=== PATIENT | male | born 1975 | race Caucasian/White ===

== ENCOUNTER 2018-01-16 12:23 | Inpatient (IN) | payer OTHER ==
[2018-01-16] MEDS ORDERED: MEROPENEM 1 GM/50ML(PMX) 50 ML IVPB (12:30)
[2018-01-16] MEDS: HYDROmorphONE 2 MG/ML SYG IV (12:42)
[2018-01-16] MEDS: SODIUM CHLORIDE 0.9% 1L BAG IV* (12:42)
[2018-01-16 12:59] LABS: ADD MAN DIFF? NO
[2018-01-16] MEDS ORDERED: PIPER-TAZO 3.375 GM IV (PMX) 100 ML IVPB (13:00)
[2018-01-16 13:02] LABS: WHITE BLOOD COUNT 3.2 10^3/ul (4.8-10.8)
[2018-01-16 13:02] LABS: BASOPHILS % 0.9 % (0.0-2.0); EOSINOPHILS # 0.5 10^3/ul (0.0-0.5); EOSINOPHILS % 14.5 % (0.0-7.0); HEMOGLOBIN 12.4 g/dl (14.0-18.0); LYMPHOCYTES # 1.3 10^3/ul (0.8-2.9); LYMPHOCYTES % 40.1 % (15.0-51.0); MEAN CORPUSCULAR HEMOGLOBIN 31.9 pg (29.0-33.0); MEAN CORPUSCULAR HGB CONC 33.5 g/dl (32.0-37.0); MEAN CORPUSCULAR VOLUME 95.1 fl (82.0-101.0); MEAN PLATELET VOLUME 11.9 fl (7.4-10.4); MONOCYTE # 0.4 10^3/ul (0.3-0.9); MONOCYTES % 11.4 % (0.0-11.0); NEUTROPHIL # 1.1 10^3/ul (1.6-7.5); NEUTROPHILS % 33.1 % (39.0-77.0); PLATELET COUNT 132 10^3/UL (140-415); RED BLOOD COUNT 3.89 10^6/ul (4.70-6.10); RED CELL DISTRIBUTION WIDTH 12.6 % (11.5-14.5)
[2018-01-16 13:23] LABS: LACTIC ACID 0.9 mmol/L (0.5-2.0)
[2018-01-16 13:32] LABS: INR 0.96; PROTIME 12.9 Sec (11.9-14.9)
[2018-01-16 13:33] LABS: PARTIAL THROMBOPLASTIN TIME 30.3 Sec (25.0-35.0)
[2018-01-16] MEDS: PIPER-TAZO 3.375 GM IV (PMX) 100 ML IVPB (13:36)
[2018-01-16 13:40] LABS: ALANINE AMINOTRANSFERASE 78 IU/L (13-69); ALBUMIN 3.8 g/dl (3.3-4.9); ALBUMIN/GLOBULIN RATIO 1.05; ALKALINE PHOSPHATASE 180 IU/L (42-121); ANION GAP 13 (8-16); ASPARTATE AMINO TRANSFERASE 47 IU/L (15-46); BILIRUBIN,INDIRECT 0.3 mg/dl (0-1.1); BILIRUBIN,TOTAL 0.3 mg/dl (0.2-1.3); BLOOD UREA NITROGEN 7 mg/dl (7-20); CALCIUM 9.3 mg/dl (8.4-10.2); CARBON DIOXIDE 32 mmol/L (21-31); CHLORIDE 99 mmol/L (97-110); CREATININE 0.33 mg/dl (0.61-1.24); GLUCOSE 109 mg/dl (70-220); POTASSIUM 3.8 mmol/L (3.5-5.1); SODIUM 140 mmol/L (135-144); TOTAL PROTEIN 7.4 g/dl (6.1-8.1)
[2018-01-16 13:51] LABS: TROPONIN-I < 0.012 ng/ml (0.000-0.120)
[2018-01-16 13:56] LABS: ADD UMIC YES; UR ASCORBIC ACID NEGATIVE (NEGATIVE); UR BACTERIA FEW /HPF (NONE SEEN); UR BILIRUBIN (Dip) NEGATIVE (NEGATIVE); UR BLOOD (Dip) 2+ mg/dL (NEGATIVE); UR CLARITY CLOUDY (CLEAR); UR COLOR YELLOW (YELLOW); UR GLUCOSE (Dip) NEGATIVE (NEGATIVE); UR KETONES (Dip) NEGATIVE (NEGATIVE); UR LEUKOCYTE ESTERASE (Dip) 3+ Leu/ul (NEGATIVE); UR NITRITE (Dip) NEGATIVE (NEGATIVE); UR RBC 25 /HPF (0-5); UR SPECIFIC GRAVITY (Dip) 1.002 (1.003-1.030); UR TOTAL PROTEIN (Dip) 1+ mg/dl (NEGATIVE); UR UROBILINOGEN (Dip) NEGATIVE (NEGATIVE); UR WBC 121 /HPF (0-5)
[2018-01-16] MEDS ORDERED: ONDANSETRON 4 MG INJ IV ×2 (14:30→15:00)
[2018-01-16] MEDS: AMIKACIN 500 MG in DEXTROSE 5% 100 ML IVPB (14:37)
[2018-01-16] MEDS: SOD CHLORIDE 0.9% 1,000 ML IV (14:37)
[2018-01-16] MEDS ORDERED: NACL 0.9% 3 ML SYG IV (15:00)
[2018-01-16] MEDS ORDERED: MAGNESIUM HYDROXIDE 30ML CUP PO (15:00)
[2018-01-16] MEDS ORDERED: hydrALAzine 20 MG INJ IV (15:00)
[2018-01-16] MEDS ORDERED: DOCUSATE SODIUM 100 MG CAP PO (15:00)
[2018-01-16] MEDS ORDERED: NA PHOSPHATE/BIPHOS 133 ML ENEMA PR (15:00)
[2018-01-16] MEDS ORDERED: AMIKACIN IV PER PHARMACY XX (15:00)
[2018-01-16] MEDS ORDERED: CEFEPIME 2GM/50 ML (PMX) 50 ML IVPB (15:00)
[2018-01-16] MEDS ORDERED: ACETAMINOPHEN 325 MG TAB PO (15:00)
[2018-01-16] MEDS ORDERED: NITROGLYCERIN (SL) 0.4 MG TAB SL (15:00)
[2018-01-16] MEDS ORDERED: HYDROCODONE/APAP (5/325) TAB PO (15:00)
[2018-01-16 16:01] LABS: LACTIC ACID 0.5 mmol/L (0.5-2.0)
[2018-01-16 16:48] LABS: FREE T4 (FREE THYROXINE) 1.01 ng/dl (0.64-1.79)
[2018-01-16] MEDS: SOD CHLORIDE 0.45% 1,000 ML IV (19:46)
[2018-01-16] MEDS ORDERED: PENDING SANTYL ORDER FOR WOUND CARE XX (20:30)
[2018-01-16 20:35] LABS: LACTIC ACID < 0.5 mmol/L (0.5-2.0)
[2018-01-16] MEDS ORDERED: LEVETIRACETAM 1000 MG (PMX) 100 ML IVPB (21:00)
[2018-01-16] MEDS: HEPARIN 5,000 UNIT/0.5 ML VIAL SC (21:00)
[2018-01-16] MEDS: LORAZEPAM 1 MG TAB GTB (22:19)
[2018-01-16] MEDS: traZODone 50 MG TAB GTB (22:20)
[2018-01-16] MEDS: BACLOFEN 10 MG TAB GTB (22:21)
[2018-01-16] MEDS: PHENOBARBITAL 32.4 MG TAB GTB (22:21)
[2018-01-16] MEDS: RISPERIDONE 1 MG TAB GTB (22:22)
[2018-01-16] MEDS: GABAPENTIN (50 MG/ML PO SYG) GTB (22:22)
[2018-01-16] MEDS: RANITIDINE (15 MG/ML) 10ML CUP GTB (22:22)
[2018-01-16] MEDS: ZONISAMIDE 100 MG CAP GTB (22:23)
[2018-01-17] MEDS: KETOROLAC 30 MG INJ IV (01:32)
[2018-01-17] MEDS: morphine LIQ (10 MG/5 ML) CUP GTB (02:05)
[2018-01-17] MEDS: SOD CHLORIDE 0.45% 1,000 ML IV ×2 (04:03→09:57)
[2018-01-17 05:52] LABS: ADD MAN DIFF? NO
[2018-01-17 06:02] LABS: BASOPHIL # 0.1 10^3/ul (0.0-0.1); BASOPHILS % 1.6 % (0.0-2.0); EOSINOPHILS # 0.4 10^3/ul (0.0-0.5); EOSINOPHILS % 14.1 % (0.0-7.0); HEMATOCRIT 34.4 % (42.0-52.0); HEMOGLOBIN 11.4 g/dl (14.0-18.0); LYMPHOCYTES # 0.7 10^3/ul (0.8-2.9); LYMPHOCYTES % 24.2 % (15.0-51.0); MEAN CORPUSCULAR HEMOGLOBIN 31.8 pg (29.0-33.0); MEAN CORPUSCULAR HGB CONC 33.1 g/dl (32.0-37.0); MEAN CORPUSCULAR VOLUME 96.1 fl (82.0-101.0); MEAN PLATELET VOLUME 12.1 fl (7.4-10.4); MONOCYTE # 0.4 10^3/ul (0.3-0.9); MONOCYTES % 14.4 % (0.0-11.0); NEUTROPHIL # 1.4 10^3/ul (1.6-7.5); NEUTROPHILS % 45.4 % (39.0-77.0); PLATELET COUNT 123 10^3/UL (140-415); RED BLOOD COUNT 3.58 10^6/ul (4.70-6.10); RED CELL DISTRIBUTION WIDTH 12.9 % (11.5-14.5)
[2018-01-17 06:02] LABS: WHITE BLOOD COUNT 3.1 10^3/ul (4.8-10.8)
[2018-01-17 06:29] LABS: ANION GAP 11 (8-16); BLOOD UREA NITROGEN 7 mg/dl (7-20); CALCIUM 9.5 mg/dl (8.4-10.2); CARBON DIOXIDE 31 mmol/L (21-31); CHLORIDE 106 mmol/L (97-110); CHOL/HDL RATIO 3.3 RATIO; CREATININE 0.33 mg/dl (0.61-1.24); GLUCOSE 71 mg/dl (70-220); HDL CHOLESTEROL 39 mg/dl (27-67); LDL CHOLESTEROL,CALCULATED 79 mg/dl; MAGNESIUM 1.8 mg/dl (1.7-2.5); PHOSPHORUS 3.5 mg/dl (2.5-4.9); SODIUM 144 mmol/L (135-144); TRIGLYCERIDES 68 mg/dl (0-149)
[2018-01-17 06:29] LABS: CHOLESTEROL 132 mg/dl (100-200)
[2018-01-17 07:10] LABS: HEMOGLOBIN A1C 4.7 % (0-5.9)
[2018-01-17] MEDS: ACETYLCYSTEINE 20% 4 ML VIAL NEB ×3 (07:14→20:15)
[2018-01-17] MEDS: ALBUTEROL/IPRATROPIUM (NEB) 3 ML AMP NEB ×2 (07:14→20:16)
[2018-01-17] MEDS: BACLOFEN 10 MG TAB GTB ×3 (09:24→21:06)
[2018-01-17] MEDS: GABAPENTIN (50 MG/ML PO SYG) GTB ×3 (09:25→21:00)
[2018-01-17] MEDS: RANITIDINE (15 MG/ML) 10ML CUP GTB ×2 (09:25→21:06)
[2018-01-17] MEDS: PHENOBARBITAL 32.4 MG TAB GTB ×2 (09:25→21:07)
[2018-01-17] MEDS: LORAZEPAM 1 MG TAB GTB ×2 (09:25→21:06)
[2018-01-17] MEDS: LORATADINE 10 MG TAB GTB (09:25)
[2018-01-17] MEDS: HEPARIN 5,000 UNIT/0.5 ML VIAL SC ×2 (09:33→21:15)
[2018-01-17] MEDS: AMIKACIN 500 MG in SOD CHLORIDE 0.9% 100 ML IVPB (16:20)
[2018-01-17] MEDS: RISPERIDONE 1 MG TAB GTB (21:06)
[2018-01-17] MEDS: ZONISAMIDE 100 MG CAP GTB (21:06)
[2018-01-17] MEDS: traZODone 50 MG TAB GTB (21:07)
[2018-01-18] MEDS: morphine LIQ (10 MG/5 ML) CUP GTB ×4 (01:41→18:54)
[2018-01-18] MEDS: SOD CHLORIDE 0.45% 1,000 ML IV ×2 (01:41→18:57)
[2018-01-18] MEDS: KETOROLAC 30 MG INJ IV ×3 (05:53→18:23)
[2018-01-18 06:07] LABS: ADD MAN DIFF? NO
[2018-01-18 06:30] LABS: WHITE BLOOD COUNT 4.2 10^3/ul (4.8-10.8)
[2018-01-18 06:30] LABS: BASOPHILS % 0.9 % (0.0-2.0); EOSINOPHILS # 0.4 10^3/ul (0.0-0.5); EOSINOPHILS % 8.3 % (0.0-7.0); HEMATOCRIT 32.9 % (42.0-52.0); HEMOGLOBIN 11.2 g/dl (14.0-18.0); LYMPHOCYTES # 0.9 10^3/ul (0.8-2.9); LYMPHOCYTES % 21.7 % (15.0-51.0); MEAN CORPUSCULAR HEMOGLOBIN 31.9 pg (29.0-33.0); MEAN CORPUSCULAR VOLUME 93.7 fl (82.0-101.0); MEAN PLATELET VOLUME 12.5 fl (7.4-10.4); MONOCYTE # 0.6 10^3/ul (0.3-0.9); NEUTROPHIL # 2.4 10^3/ul (1.6-7.5); NEUTROPHILS % 55.9 % (39.0-77.0); PLATELET COUNT 121 10^3/UL (140-415); RED BLOOD COUNT 3.51 10^6/ul (4.70-6.10); RED CELL DISTRIBUTION WIDTH 12.9 % (11.5-14.5)
[2018-01-18 06:38] LABS: ANION GAP 13 (8-16); BLOOD UREA NITROGEN 10 mg/dl (7-20); CALCIUM 8.6 mg/dl (8.4-10.2); CARBON DIOXIDE 24 mmol/L (21-31); CHLORIDE 109 mmol/L (97-110); CREATININE 0.28 mg/dl (0.61-1.24); GLUCOSE 111 mg/dl (70-220); POTASSIUM 4.4 mmol/L (3.5-5.1); SODIUM 142 mmol/L (135-144)
[2018-01-18] MEDS: ALBUTEROL/IPRATROPIUM (NEB) 3 ML AMP NEB ×2 (08:33→19:41)
[2018-01-18] MEDS: ACETYLCYSTEINE 20% 4 ML VIAL NEB ×2 (08:34→19:41)
[2018-01-18] MEDS: LORAZEPAM 1 MG TAB GTB ×2 (09:17→21:08)
[2018-01-18] MEDS: PHENOBARBITAL 32.4 MG TAB GTB ×2 (09:17→21:10)
[2018-01-18] MEDS: LORATADINE 10 MG TAB GTB (09:17)
[2018-01-18] MEDS: BACLOFEN 10 MG TAB GTB ×3 (09:17→21:09)
[2018-01-18] MEDS: GABAPENTIN (50 MG/ML PO SYG) GTB ×3 (09:18→21:00)
[2018-01-18] MEDS: RANITIDINE (15 MG/ML) 10ML CUP GTB ×2 (09:18→21:07)
[2018-01-18] MEDS: HEPARIN 5,000 UNIT/0.5 ML VIAL SC ×2 (09:23→21:15)
[2018-01-18] MEDS: AMIKACIN 500 MG in SOD CHLORIDE 0.9% 100 ML IVPB (16:18)
[2018-01-18] MEDS: ALBUTEROL/IPRATROPIUM (NEB) 3 ML AMP HHN (16:24)
[2018-01-18] MEDS: RISPERIDONE 1 MG TAB GTB (21:08)
[2018-01-18] MEDS: ZONISAMIDE 100 MG CAP GTB (21:08)
[2018-01-18] MEDS: ZYVOX 600 MG TAB PO (21:09)
[2018-01-18] MEDS: traZODone 50 MG TAB GTB (21:10)
[2018-01-18] MEDS: NYSTATIN 30 GM POWDER BTL TOP (21:11)
[2018-01-19] MEDS: ALBUTEROL/IPRATROPIUM (NEB) 3 ML AMP HHN (02:35)
[2018-01-19] MEDS: KETOROLAC 30 MG INJ IV ×3 (03:05→14:36)
[2018-01-19] MEDS: morphine LIQ (10 MG/5 ML) CUP GTB ×4 (04:25→18:11)
[2018-01-19 05:50] LABS: ADD MAN DIFF? NO
[2018-01-19 05:54] LABS: BASOPHILS % 1.5 % (0.0-2.0); EOSINOPHILS # 0.2 10^3/ul (0.0-0.5); EOSINOPHILS % 8.9 % (0.0-7.0); HEMATOCRIT 29.3 % (42.0-52.0); HEMOGLOBIN 9.7 g/dl (14.0-18.0); LYMPHOCYTES # 0.9 10^3/ul (0.8-2.9); LYMPHOCYTES % 31.6 % (15.0-51.0); MEAN CORPUSCULAR HEMOGLOBIN 31.7 pg (29.0-33.0); MEAN CORPUSCULAR HGB CONC 33.1 g/dl (32.0-37.0); MEAN CORPUSCULAR VOLUME 95.8 fl (82.0-101.0); MEAN PLATELET VOLUME 11.9 fl (7.4-10.4); MONOCYTE # 0.5 10^3/ul (0.3-0.9); MONOCYTES % 16.7 % (0.0-11.0); NEUTROPHIL # 1.1 10^3/ul (1.6-7.5); NEUTROPHILS % 41.3 % (39.0-77.0); PLATELET COUNT 133 10^3/UL (140-415); RED BLOOD COUNT 3.06 10^6/ul (4.70-6.10); RED CELL DISTRIBUTION WIDTH 13.3 % (11.5-14.5)
[2018-01-19 05:54] LABS: WHITE BLOOD COUNT 2.7 10^3/ul (4.8-10.8)
[2018-01-19 06:26] LABS: ANION GAP 10 (8-16); BLOOD UREA NITROGEN 10 mg/dl (7-20); CALCIUM 8.9 mg/dl (8.4-10.2); CARBON DIOXIDE 30 mmol/L (21-31); CHLORIDE 106 mmol/L (97-110); CREATININE 0.35 mg/dl (0.61-1.24); GLUCOSE 98 mg/dl (70-220); POTASSIUM 4.5 mmol/L (3.5-5.1); SODIUM 141 mmol/L (135-144)
[2018-01-19] MEDS: RANITIDINE (15 MG/ML) 10ML CUP GTB ×2 (08:53→20:30)
[2018-01-19] MEDS: BACLOFEN 10 MG TAB GTB ×3 (08:53→20:32)
[2018-01-19] MEDS: ZYVOX 600 MG TAB PO ×2 (08:53→20:32)
[2018-01-19] MEDS: GABAPENTIN (50 MG/ML PO SYG) GTB ×3 (08:53→20:31)
[2018-01-19] MEDS: ACETYLCYSTEINE 20% 4 ML VIAL NEB ×2 (08:56→20:49)
[2018-01-19] MEDS: ALBUTEROL/IPRATROPIUM (NEB) 3 ML AMP NEB ×2 (08:56→20:49)
[2018-01-19] MEDS: LORATADINE 10 MG TAB GTB (09:00)
[2018-01-19] MEDS: LORAZEPAM 1 MG TAB GTB ×2 (09:00→20:32)
[2018-01-19] MEDS: PHENOBARBITAL 32.4 MG TAB GTB ×2 (09:00→20:31)
[2018-01-19] MEDS: NYSTATIN 30 GM POWDER BTL TOP ×2 (09:01→20:33)
[2018-01-19] MEDS: BALSAM PERU/CASTOR OIL 60 GM TUBE TOP (09:01)
[2018-01-19] MEDS: HEPARIN 5,000 UNIT/0.5 ML VIAL SC ×2 (09:26→20:34)
[2018-01-19] MEDS: SOD CHLORIDE 0.45% 1,000 ML IV ×3 (09:27→23:00)
[2018-01-19] MEDS: AMIKACIN 500 MG in SOD CHLORIDE 0.9% 100 ML IVPB (16:21)
[2018-01-19 18:56] LABS: AMIKACIN TROUGH <2.5 mg/L (4.0-8.0)
[2018-01-19] MEDS: traZODone 50 MG TAB GTB (20:31)
[2018-01-19] MEDS: ZONISAMIDE 100 MG CAP GTB (20:31)
[2018-01-19] MEDS: RISPERIDONE 1 MG TAB GTB (20:32)
[2018-01-20] MEDS: AMIKACIN 500 MG in SOD CHLORIDE 0.9% 100 ML IVPB (04:23)
[2018-01-20] MEDS: KETOROLAC 30 MG INJ IV ×3 (04:23→19:38)
[2018-01-20] MEDS: morphine LIQ (10 MG/5 ML) CUP GTB ×3 (05:43→14:16)
[2018-01-20 06:04] LABS: ADD MAN DIFF? NO
[2018-01-20 06:22] LABS: WHITE BLOOD COUNT 4.1 10^3/ul (4.8-10.8)
[2018-01-20 06:22] LABS: EOSINOPHILS # 0.6 10^3/ul (0.0-0.5); HEMOGLOBIN 11.2 g/dl (14.0-18.0); LYMPHOCYTES # 1.3 10^3/ul (0.8-2.9); LYMPHOCYTES % 30.5 % (15.0-51.0); MEAN CORPUSCULAR HEMOGLOBIN 32.3 pg (29.0-33.0); MEAN CORPUSCULAR HGB CONC 32.9 g/dl (32.0-37.0); MEAN PLATELET VOLUME 12.6 fl (7.4-10.4); MONOCYTE # 0.6 10^3/ul (0.3-0.9); MONOCYTES % 13.3 % (0.0-11.0); NEUTROPHIL # 1.7 10^3/ul (1.6-7.5); NEUTROPHILS % 41.2 % (39.0-77.0); POSITIVE DIFF @See below; RED BLOOD COUNT 3.47 10^6/ul (4.70-6.10); RED CELL DISTRIBUTION WIDTH 13.4 % (11.5-14.5)
[2018-01-20 06:36] LABS: PLATELET COUNT 106 10^3/UL (140-415)
[2018-01-20 06:39] LABS: ANION GAP 13 (8-16); BLOOD UREA NITROGEN 12 mg/dl (7-20); CALCIUM 9.2 mg/dl (8.4-10.2); CARBON DIOXIDE 28 mmol/L (21-31); CHLORIDE 106 mmol/L (97-110); CREATININE 0.35 mg/dl (0.61-1.24); GLUCOSE 86 mg/dl (70-220); POTASSIUM 4.9 mmol/L (3.5-5.1); SODIUM 142 mmol/L (135-144)
[2018-01-20] MEDS: ACETYLCYSTEINE 20% 4 ML VIAL NEB ×2 (07:42→19:58)
[2018-01-20] MEDS: ALBUTEROL/IPRATROPIUM (NEB) 3 ML AMP NEB ×2 (07:42→19:48)
[2018-01-20] MEDS: LORAZEPAM 1 MG TAB GTB ×2 (09:35→20:24)
[2018-01-20] MEDS: PHENOBARBITAL 32.4 MG TAB GTB ×2 (09:35→20:23)
[2018-01-20] MEDS: BACLOFEN 10 MG TAB GTB ×3 (09:35→20:24)
[2018-01-20] MEDS: RANITIDINE (15 MG/ML) 10ML CUP GTB ×2 (09:36→20:23)
[2018-01-20] MEDS: ZYVOX 600 MG TAB PO ×2 (09:36→20:24)
[2018-01-20] MEDS: LORATADINE 10 MG TAB GTB (09:36)
[2018-01-20] MEDS: GABAPENTIN (50 MG/ML PO SYG) GTB ×3 (09:36→20:23)
[2018-01-20] MEDS: HEPARIN 5,000 UNIT/0.5 ML VIAL SC ×2 (09:37→20:31)
[2018-01-20] MEDS: BALSAM PERU/CASTOR OIL 60 GM TUBE TOP (09:38)
[2018-01-20] MEDS: NYSTATIN 30 GM POWDER BTL TOP ×2 (09:38→20:25)
[2018-01-20] MEDS: SOD CHLORIDE 0.45% 1,000 ML IV ×2 (11:58→20:25)
[2018-01-20] MEDS: RISPERIDONE 1 MG TAB GTB (20:24)
[2018-01-20] MEDS: ZONISAMIDE 100 MG CAP GTB (20:24)
[2018-01-20] MEDS: traZODone 50 MG TAB GTB (20:24)
[2018-01-21] MEDS: SOD CHLORIDE 0.45% 1,000 ML IV ×2 (00:27→11:58)
[2018-01-21] MEDS: KETOROLAC 30 MG INJ IV ×2 (01:41→07:43)
[2018-01-21] MEDS: morphine LIQ (10 MG/5 ML) CUP GTB ×2 (04:36→08:56)
[2018-01-21 06:04] LABS: ADD MAN DIFF? NO
[2018-01-21] MEDS: BACLOFEN 10 MG TAB GTB ×3 (08:53→20:47)
[2018-01-21] MEDS: LORATADINE 10 MG TAB GTB (08:53)
[2018-01-21] MEDS: ZYVOX 600 MG TAB PO ×2 (08:53→20:49)
[2018-01-21] MEDS: GABAPENTIN (50 MG/ML PO SYG) GTB ×3 (08:54→20:45)
[2018-01-21] MEDS: PHENOBARBITAL 32.4 MG TAB GTB ×2 (08:54→20:43)
[2018-01-21] MEDS: RANITIDINE (15 MG/ML) 10ML CUP GTB ×2 (08:54→20:42)
[2018-01-21] MEDS: LORAZEPAM 1 MG TAB GTB ×2 (08:54→20:44)
[2018-01-21] MEDS: HEPARIN 5,000 UNIT/0.5 ML VIAL SC ×2 (08:57→20:51)
[2018-01-21] MEDS: BALSAM PERU/CASTOR OIL 60 GM TUBE TOP (08:58)
[2018-01-21] MEDS: NYSTATIN 30 GM POWDER BTL TOP ×2 (08:58→20:55)
[2018-01-21 09:20] LABS: WHITE BLOOD COUNT 5.1 10^3/ul (4.8-10.8)
[2018-01-21 09:20] LABS: BASOPHILS % 0.4 % (0.0-2.0); EOSINOPHILS # 0.5 10^3/ul (0.0-0.5); HEMATOCRIT 33.3 % (42.0-52.0); HEMOGLOBIN 10.9 g/dl (14.0-18.0); LYMPHOCYTES # 1.1 10^3/ul (0.8-2.9); LYMPHOCYTES % 21.4 % (15.0-51.0); MEAN CORPUSCULAR HEMOGLOBIN 31.9 pg (29.0-33.0); MEAN CORPUSCULAR HGB CONC 32.7 g/dl (32.0-37.0); MEAN CORPUSCULAR VOLUME 97.4 fl (82.0-101.0); MEAN PLATELET VOLUME 12.1 fl (7.4-10.4); MONOCYTE # 0.7 10^3/ul (0.3-0.9); MONOCYTES % 13.2 % (0.0-11.0); NEUTROPHIL # 2.8 10^3/ul (1.6-7.5); NEUTROPHILS % 55.8 % (39.0-77.0); PLATELET COUNT 137 10^3/UL (140-415); RED BLOOD COUNT 3.42 10^6/ul (4.70-6.10); RED CELL DISTRIBUTION WIDTH 13.3 % (11.5-14.5)
[2018-01-21] MEDS: ACETYLCYSTEINE 20% 4 ML VIAL NEB ×2 (09:29→20:45)
[2018-01-21] MEDS: ALBUTEROL/IPRATROPIUM (NEB) 3 ML AMP NEB ×2 (09:29→20:45)
[2018-01-21 09:39] LABS: ANION GAP 15 (8-16); BLOOD UREA NITROGEN 12 mg/dl (7-20); CARBON DIOXIDE 27 mmol/L (21-31); CHLORIDE 102 mmol/L (97-110); CREATININE 0.32 mg/dl (0.61-1.24); GLUCOSE 106 mg/dl (70-220); POTASSIUM 4.7 mmol/L (3.5-5.1); SODIUM 139 mmol/L (135-144)
[2018-01-21] MEDS: AMIKACIN 500 MG in SOD CHLORIDE 0.9% 100 ML IVPB (12:21)
[2018-01-21] MEDS: HYDROmorphONE 2 MG/ML SYG IV (12:22)
[2018-01-21] MEDS: AZTREONAM 1 GM/NS (PMX) 50 ML IVPB ×2 (13:00→22:19)
[2018-01-21] MEDS: SENNA TAB PO ×2 (14:08→20:48)
[2018-01-21] MEDS: morphine 2 MG INJ IV (20:39)
[2018-01-21] MEDS: traZODone 50 MG TAB GTB (20:44)
[2018-01-21] MEDS: ZONISAMIDE 100 MG CAP GTB (20:47)
[2018-01-21] MEDS: RISPERIDONE 1 MG TAB GTB (20:48)
[2018-01-22] MEDS: morphine 2 MG INJ IV ×5 (03:32→21:41)
[2018-01-22] MEDS: SOD CHLORIDE 0.45% 1,000 ML IV ×2 (03:56→17:23)
[2018-01-22] MEDS: KETOROLAC 30 MG INJ IV ×2 (05:21→18:56)
[2018-01-22 05:33] LABS: ADD MAN DIFF? NO
[2018-01-22 05:49] LABS: BASOPHILS % 0.9 % (0.0-2.0); EOSINOPHILS # 0.4 10^3/ul (0.0-0.5); EOSINOPHILS % 10.8 % (0.0-7.0); HEMATOCRIT 30.9 % (42.0-52.0); HEMOGLOBIN 10.1 g/dl (14.0-18.0); LYMPHOCYTES # 0.7 10^3/ul (0.8-2.9); LYMPHOCYTES % 21.6 % (15.0-51.0); MEAN CORPUSCULAR HEMOGLOBIN 31.6 pg (29.0-33.0); MEAN CORPUSCULAR HGB CONC 32.7 g/dl (32.0-37.0); MEAN CORPUSCULAR VOLUME 96.6 fl (82.0-101.0); MONOCYTE # 0.6 10^3/ul (0.3-0.9); MONOCYTES % 18.5 % (0.0-11.0); NEUTROPHIL # 1.6 10^3/ul (1.6-7.5); NEUTROPHILS % 47.9 % (39.0-77.0); PLATELET COUNT 137 10^3/UL (140-415); RED CELL DISTRIBUTION WIDTH 13.2 % (11.5-14.5)
[2018-01-22 05:49] LABS: WHITE BLOOD COUNT 3.2 10^3/ul (4.8-10.8)
[2018-01-22 06:21] LABS: ANION GAP 11 (8-16); BLOOD UREA NITROGEN 13 mg/dl (7-20); CALCIUM 8.7 mg/dl (8.4-10.2); CARBON DIOXIDE 28 mmol/L (21-31); CHLORIDE 105 mmol/L (97-110); CREATININE 0.33 mg/dl (0.61-1.24); GLUCOSE 102 mg/dl (70-220); POTASSIUM 4.2 mmol/L (3.5-5.1); SODIUM 140 mmol/L (135-144)
[2018-01-22] MEDS: ALBUTEROL/IPRATROPIUM (NEB) 3 ML AMP NEB ×2 (07:48→20:12)
[2018-01-22] MEDS: ACETYLCYSTEINE 20% 4 ML VIAL NEB ×2 (07:48→20:12)
[2018-01-22] MEDS: AZTREONAM 1 GM/NS (PMX) 50 ML IVPB ×2 (08:46→21:32)
[2018-01-22] MEDS: GABAPENTIN (50 MG/ML PO SYG) GTB ×3 (08:48→22:14)
[2018-01-22] MEDS: RANITIDINE (15 MG/ML) 10ML CUP GTB ×2 (08:48→21:44)
[2018-01-22] MEDS: PHENOBARBITAL 32.4 MG TAB GTB ×2 (08:49→21:46)
[2018-01-22] MEDS: ZYVOX 600 MG TAB PO ×2 (08:50→21:45)
[2018-01-22] MEDS: LORATADINE 10 MG TAB GTB (08:50)
[2018-01-22] MEDS: SENNA TAB PO ×2 (08:50→21:45)
[2018-01-22] MEDS: BACLOFEN 10 MG TAB GTB ×3 (08:50→21:45)
[2018-01-22] MEDS: BALSAM PERU/CASTOR OIL 60 GM TUBE TOP (08:51)
[2018-01-22] MEDS: NYSTATIN 30 GM POWDER BTL TOP ×2 (08:51→21:52)
[2018-01-22] MEDS: LORAZEPAM 1 MG TAB GTB ×2 (08:51→21:00)
[2018-01-22] MEDS: HEPARIN 5,000 UNIT/0.5 ML VIAL SC ×2 (09:00→21:48)
[2018-01-22] MEDS: AMIKACIN 500 MG in SOD CHLORIDE 0.9% 100 ML IVPB (12:47)
[2018-01-22] MEDS: morphine LIQ (20 MG/ML PO SYG) GTB (14:48)
[2018-01-22] MEDS: LORAZEPAM 2 MG INJ IV (19:12)
[2018-01-22] MEDS: SOD CHLORIDE 0.9% 1,000 ML IV (20:23)
[2018-01-22] MEDS: ZONISAMIDE 100 MG CAP GTB (21:00)
[2018-01-22] MEDS: TIZANIDINE 4 MG TAB GTB (21:43)
[2018-01-22] MEDS: RISPERIDONE 1 MG TAB GTB (21:44)
[2018-01-22] MEDS: traZODone 50 MG TAB GTB (21:45)
[2018-01-23] MEDS: SOD CHLORIDE 0.45% 1,000 ML IV ×2 (01:09→16:22)
[2018-01-23] MEDS: morphine 2 MG INJ IV ×4 (02:23→16:17)
[2018-01-23] MEDS: ZONISAMIDE 100 MG CAP GTB (02:27)
[2018-01-23] MEDS: LORAZEPAM 1 MG TAB GTB (02:36)
[2018-01-23] MEDS: KETOROLAC 30 MG INJ IV (03:15)
[2018-01-23] MEDS: morphine LIQ (10 MG/5 ML) CUP GTB ×2 (04:03→08:48)
[2018-01-23 06:12] LABS: ADD MAN DIFF? NO
[2018-01-23 06:26] LABS: WHITE BLOOD COUNT 3.9 10^3/ul (4.8-10.8)
[2018-01-23 06:26] LABS: EOSINOPHILS # 0.4 10^3/ul (0.0-0.5); EOSINOPHILS % 9.8 % (0.0-7.0); HEMATOCRIT 29.3 % (42.0-52.0); HEMOGLOBIN 9.6 g/dl (14.0-18.0); LYMPHOCYTES # 1.1 10^3/ul (0.8-2.9); LYMPHOCYTES % 28.8 % (15.0-51.0); MEAN CORPUSCULAR HEMOGLOBIN 32.2 pg (29.0-33.0); MEAN CORPUSCULAR HGB CONC 32.8 g/dl (32.0-37.0); MEAN CORPUSCULAR VOLUME 98.3 fl (82.0-101.0); MEAN PLATELET VOLUME 12.2 fl (7.4-10.4); MONOCYTE # 0.6 10^3/ul (0.3-0.9); MONOCYTES % 15.9 % (0.0-11.0); NEUTROPHIL # 1.7 10^3/ul (1.6-7.5); NEUTROPHILS % 44.2 % (39.0-77.0); PLATELET COUNT 138 10^3/UL (140-415); RED BLOOD COUNT 2.98 10^6/ul (4.70-6.10); RED CELL DISTRIBUTION WIDTH 13.3 % (11.5-14.5)
[2018-01-23 07:38] LABS: ANION GAP 9 (8-16); BLOOD UREA NITROGEN 15 mg/dl (7-20); CALCIUM 8.3 mg/dl (8.4-10.2); CARBON DIOXIDE 29 mmol/L (21-31); CHLORIDE 106 mmol/L (97-110); CREATININE 0.35 mg/dl (0.61-1.24); GLUCOSE 93 mg/dl (70-220); POTASSIUM 4.7 mmol/L (3.5-5.1); SODIUM 139 mmol/L (135-144)
[2018-01-23] MEDS: ALBUTEROL/IPRATROPIUM (NEB) 3 ML AMP NEB (07:38)
[2018-01-23] MEDS: ACETYLCYSTEINE 20% 4 ML VIAL NEB (07:38)
[2018-01-23] MEDS: LORATADINE 10 MG TAB GTB (08:23)
[2018-01-23] MEDS: SENNA TAB PO (08:24)
[2018-01-23] MEDS: RANITIDINE (15 MG/ML) 10ML CUP GTB (08:24)
[2018-01-23] MEDS: PHENOBARBITAL 32.4 MG TAB GTB (08:24)
[2018-01-23] MEDS: BACLOFEN 10 MG TAB GTB ×2 (08:24→12:32)
[2018-01-23] MEDS: NYSTATIN 30 GM POWDER BTL TOP (08:25)
[2018-01-23] MEDS: ZYVOX 600 MG TAB PO (08:25)
[2018-01-23] MEDS: BALSAM PERU/CASTOR OIL 60 GM TUBE TOP (08:26)
[2018-01-23] MEDS: HEPARIN 5,000 UNIT/0.5 ML VIAL SC (08:31)
[2018-01-23] MEDS: AZTREONAM 1 GM/NS (PMX) 50 ML IVPB (08:32)
[2018-01-23] MEDS: GABAPENTIN (50 MG/ML PO SYG) GTB ×2 (08:32→12:32)
[2018-01-23] MEDS: AMIKACIN 500 MG in SOD CHLORIDE 0.9% 100 ML IVPB (12:32)
[2018-01-23] MEDS: morphine LIQ (20 MG/ML PO SYG) GTB (13:24)
[2018-01-23] MEDS ORDERED: morphine LIQ (10 MG/5 ML) CUP GTB (13:30)
[2018-01-23 14:51] LABS: AMIKACIN TROUGH <2.5 mg/L (4.0-8.0)
[2018-01-23] MEDS: HEPARIN (100 UNITS/ML) 5 ML SYG CATHETER (18:46)
[2018-01-24 05:50] LABS: PHENOBARBITAL 29.2 mg/L (15.0-40.0)
== END 2018-01-23 19:20 | disposition home health service (06) | DRG 100 ==
LOC: E/R 12:23 → MS2 14:14
DX: G40.909 Epilepsy, unspecified, not intractable, without status epilepticus (principal); G82.54 Quadriplegia, C5-C7 incomplete; G82.52 Quadriplegia, C1-C4 incomplete; N39.0 Urinary tract infection, site not specified; G82.20 Paraplegia, unspecified; J96.10 Chronic respiratory failure, unspecified whether with hypoxia or hypercapnia; D61.818 Other pancytopenia; F13.20 Sedative, hypnotic or anxiolytic dependence, uncomplicated; Z93.0 Tracheostomy status; Z93.1 Gastrostomy status; R13.10 Dysphagia, unspecified; B96.5 Pseudomonas (aeruginosa) (mallei) (pseudomallei) as the cause of diseases classified elsewhere; B95.2 Enterococcus as the cause of diseases classified elsewhere; B96.4 Proteus (mirabilis) (morganii) as the cause of diseases classified elsewhere; G89.4 Chronic pain syndrome; M24.50 Contracture, unspecified joint
CPT/HCPCS: 36415; 71045; 80048; 80053; 80061; 80150; 80184; 81001; 82962; 83036; 83605; 83735; 84100; 84439; 84443; 84484; 85025; 85610; 85730; 87040; 87086; 92610; 93005; 94640; 94664; 96374; 96375; 99291-25